=== PATIENT | female | born 1990 | race African-American/Black ===

== ENCOUNTER 2022-05-02 19:48 | Emergency (ER) | payer OTHER ==
[~2022-05-02] VITALS: Ht 165.1 cm; Wt 74.8 kg
[2022-05-02 19:54] VITALS: BP 116/76
--- NOTE | 2022-05-02 20:05 | NUR ---
PT AMBULATED TO ED 3, REPORT GIVEN TO BETHANIE Bowden RN.
--- NOTE | 2022-05-02 20:05 | NUR ---
PT TAKEN TO BED 3
--- NOTE | 2022-05-02 20:15 | NUR ---
Pt placed on C-monitor, IV established and blood drawn. Pt placed in gown. Awaiting provider to see pt. Will continue to monitor.
--- NOTE | 2022-05-02 20:25 | NUR ---
DR MCGREGOR EXAMINING PT
[2022-05-02 20:45] LABS: BASOPHILS # (AUTO) 0.1 K/uL (0.00-0.22); BASOPHILS % (AUTO) 0.7 % (0.0-2.0); EOSINOPHILS # (AUTO) 0.1 K/uL (0-0.4); EOSINOPHILS % (AUTO) 1.2 % (0.0-4.0); HEMATOCRIT 34.8 % (36-48); HEMOGLOBIN 12.1 g/dL (12.0-16.0); LYMPHOCYTES % (AUTO) 26.4 % (20.5-51.1); MEAN CORPUSCULAR HEMOGLOBIN 30 pg (27-31); MEAN CORPUSCULAR HGB CONC 35 g/dL (33-37); MONOCYTES # (AUTO) 0.5 K/uL (0.8-1.0); MONOCYTES % (AUTO) 7.2 % (1.7-9.3); NEUTROPHILS # (AUTO) 4.9 K/uL (1.8-7.7); NEUTROPHILS % (AUTO) 64.5 % (42.2-75.2); PLATELET COUNT (AUTO) 232 K/uL (140-450); RED CELL DISTRIBUTION WIDTH 13.9 % (11.6-13.7); WHITE BLOOD COUNT (AUTO) 7.7 K/uL (4.8-10.8)
[2022-05-02 21:05] LABS: ALBUMIN 3.8 g/dL (3.4-5.0); ANION GAP 13.9 (8-16); ASPARTATE AMINOTRANSFERASE 13 U/L (15-37); CARBON DIOXIDE 25.6 mmol/L (21-32); CHLORIDE 104 mmol/L (98-107); CREATININE 0.9 mg/dL (0.6-1.3); GFR ARICAN-AMERICAN 93 mL/min (>90); GLUCOSE 108 mg/dL (74-106); POTASSIUM 3.5 mmol/L (3.5-5.1); SODIUM SERUM 140 mmol/L (136-145); TOTAL BILIRUBIN 0.2 mg/dL (0.0-1.0); UREA NITROGEN, BLOOD 11 mg/dL (7-18)
--- NOTE | 2022-05-02 21:21 | NUR ---
RADIOLOGY AT BEDSIDE
[2022-05-02 22:47] VITALS: BP 114/59
--- NOTE | 2022-05-02 23:09 | NUR ---
Patient discharged with v/s stable. Written and verbal after care instructions given and explained. Patient verbalized understanding. Ambulatory with steady gait. All questions addressed prior to discharge. Advised to follow up with PMD. IV dc'd, catheter intact. Small pressure dressing applied.
== END 2022-05-02 23:02 | disposition home or self-care (01) ==
LOC: MED 19:48
DX: R07.89 Other chest pain (principal); Z88.5 Allergy status to narcotic agent
CPT/HCPCS: 36415; 71045; 80053; 81025; 84484; 85025; 85379; 93005; 99285; Q0092